=== PATIENT | male | born 1950 | race Caucasian/White ===

== ENCOUNTER 2024-09-23 12:32 | Day surgery (SDC) | payer MEDICARE ==
[2024-09-23] MEDS ORDERED: Depo-Medrol 40 MG/ML IM ONE (12:33)
[2024-09-23] MEDS ORDERED: Lactated Ringers IV ONE (12:33)
[2024-09-23] MEDS ORDERED: LIDOCAINE HCL 2% 100 MG/5 ML IJ ONE (12:33)
[2024-09-23] MEDS ORDERED: propofoL IV ONE (16:31)
--- NOTE | 2024-09-23 19:42 | XRAY ---
Indication: Bilateral L4-S1 MBB. Intraoperative fluoroscopy provided for 17 seconds. Single digital spot image submitted for interpretation demonstrates posterior needle tips projecting over expected left and right L4-S1 nerve roots. Correlate with intraoperative findings/report.
--- NOTE | 2024-09-23 19:46 | XRAY ---
17 seconds of fluoroscopy were used in surgery for a bilateral L4-S1 MBB.
== END 2024-09-23 17:11 | disposition home or self-care (01) ==
LOC: SDC-PAIN 12:32
PROVIDERS: ATTEND Psychiatry & Neurology Pain Medicine
DX: M47.817 Spondylosis without myelopathy or radiculopathy, lumbosacral region (principal)
CPT/HCPCS: 64493; 64494; 72020; J2704